=== PATIENT | female | born 1950 | race Caucasian/White ===

== ENCOUNTER 2016-10-04 07:58 | Day surgery (SDC) | payer MEDICARE, OTHER ==
[~2016-10-04 07:58] MED LIST: ACETAMINOPHEN 500 MG TABLET PO PRN; HYDROmorphone HCL 2 MG/ML VIAL IV PRN; MAG HYDROX/ALUMINUM HYD/SIMETH 30 ML UDC PO PRN; MAGNESIUM HYDROXIDE 30 ML UDC PO PRN; ONDANSETRON HCL/PF 2 MG/ML VIAL IV PRN; PROMETHAZINE HCL 25 MG in DEXTROSE 5 % IN WATER 50 ML IV PRN; RINGERS SOLUTION,LACTATED 1,000 ML IV PRN; ROPIVACAINE HCL/PF 40 MG in NORMAL SALINE 16 ML IJ PRN; ZOLPIDEM TARTRATE 5 MG TABLET PO PRN; ceFAZolin SODIUM 1 GM VIAL IV PRN; diphenhydrAMINE HCL 50 MG/ML VIAL IV PRN
[2016-10-04] MEDS ORDERED: RINGERS SOLUTION,LACTATED 1,000 ML IV ONE (08:40)
[2016-10-04] MEDS ORDERED: BUPIVACAINE HCL/EPINEPHRINE 50 ML VIAL IJ ONE ×2 (09:10)
--- NOTE | 2016-10-04 09:59 | OR ---
Operative Report - Dictated Report Narrative: Date: 10/04/2016 Physician: Anthony Celis M.D. Field Sales Executive: Gerber Bass PA-C Preoperative diagnosis: Left Knee medial meniscus tear, DJD Postoperative diagnosis: Left Knee medial meniscus tear, DJD Procedure: Left knee arthroscopy with partial medial meniscectomy, chondroplasty of the medial tibial plateau, patella and femoral trochlea Anesthesia: MAC Plus local Complications: None Estimated blood loss: Minimal Tourniquet time: None Specimens: None Retained implants: None Drains: None Indications: Lizett Is a 66 year-old female who has been followed in my clinic with complaints of knee pain consistent with suspected medial meniscal pathology. Physical exam and diagnostic imaging were consistent with these complaints and concern for medial meniscal pathology. Conservative measures have failed including, but not limited to, passage of time, activity modification, medications, and injections. The risks, benefits, and alternatives were discussed in clinic. The risks being , bleeding, infection, blood clots, nerve, tendon, ligament, blood vessel injury, persistent pain, arthrosis, need for additional procedures, and persistent symptoms. Consent was obtained in the clinic. Procedure: After marking the correct extremity in the preoperative holding area, a timeout was performed in the operating room. IV antibiotics consisting of 2 g of Ancef were administered prior to the procedure. A well-padded tourniquet was applied to the operative upper thigh. The leg was prepped and draped in a standard sterile fashion. 0.5% Marcaine with epinephrine was infused into the projected portal sites as well as the intra-articular space. A emanuel incision was made for inferior lateral portal. A blunt trocar and cannula was introduced into the knee. The suprapatellar pouch revealed no loose bodies. The medial patella facet showed grade 2 and grade 3 chondral changes distally. The lateral patella facet showed grade 3 and grade 4 chondral changes. The trochlea showed grade 2 chondral changes. The medial gutter revealed no loose bodies. The medial joint space was then entered utilizing a lateral post and valgus stress. A spinal needle was utilized for guidance into placement of an anterior medial portal. This was placed just superior to the medial meniscus ensuring that we could reach the posterior aspect of the medial joint space. A emanuel incision was made in the site, and the probe was introduced to the knee. The medial joint space was examined, and the medial femoral condyle showed mild grade 1 and a small area of grade 2 chondral change laterally on the weightbearing surface. The medial tibial plateau showed grade 2 and grade 3 chondral changes. The medial meniscus demonstrated a full-thickness radial tear just adjacent to the root with a horizontal cleavage component extending through the posterior horn. The notch was then examined, and the ACL was noted to be intact. The PCL was noted to be intact. The lateral joint space was then examined using a varus force in the figure 4 position. Lateral femoral condyle showed minimal degenerative changes. Lateral tibial plateau showed grade 2 chondral changes. The lateral meniscus showed mild degenerative fraying but no shayna tearing. The lateral gutter showed no loose bodies. Having identified the surgical pathology, a series of biters and shweta were utilized in order to debride the medial meniscus, medial tibial plateau, patella , and femoral trochlea. Once it was felt that we adequately addressed the pathology, the knee was thoroughly irrigated. The fluid was evacuated ensuring that we have removed all meniscal, chondral, and any other loose bodies. A final evaluation of the joint showed no additional pathology. The fluid was then evacuated of the knee, and the trocar and camera were removed from the joint. The wounds were closed with interrupted nylon after placing 20 mL of 0.2 % ropivacaine into the joint. Dressings consisting of Xeroform, 4 x 4, ABD, soft roll, and an Froy were applied. All sponge, needle, blade, and instrument counts were correct prior to closing the wounds. The patient was awoken and transferred to the post-anesthesia care unit in stable condition.
[2016-10-04] MEDS ORDERED: HYDROcodone/ACETAMINOPHEN 1 EACH TABLET PO ONE (10:45)
[2016-10-04 12:01] VITALS: BP 121/59
[2016-10-04] MEDS ORDERED: SENNOSIDES/DOCUSATE SODIUM 1 TAB TABLET PO SCH (21:00)
== END 2016-10-04 07:59 | disposition home or self-care (01) ==
LOC: AMB 07:58
PROVIDERS: ATTEND Orthopaedic Surgery
PROC: 0SBD4ZZ Excision of Left Knee Joint, Percutaneous Endoscopic Approach (ICD-10-PCS; principal; 2016-10-04 09:30)
DX: M23.222 Derangement of posterior horn of medial meniscus due to old tear or injury, left knee (principal); M17.12 Unilateral primary osteoarthritis, left knee; I10 Essential (primary) hypertension; E11.9 Type 2 diabetes mellitus without complications; J44.9 Chronic obstructive pulmonary disease, unspecified; E78.00 Pure hypercholesterolemia, unspecified; E55.9 Vitamin D deficiency, unspecified; Z87.891 Personal history of nicotine dependence; Z68.41 Body mass index [BMI] 40.0-44.9, adult

== ENCOUNTER 2017-08-25 10:44 | Emergency (ER) | payer MEDICARE, OTHER ==
[2017-08-25] MEDS ORDERED: ALBUTEROL SULFATE/IPRATROPIUM 3 ML NEBU IH ONE ×2 (11:34→11:38)
[2017-08-25 11:55] LABS: Hematocrit 42.5 % (37.0-47.0); Hemoglobin 13.7 gm/dL (12.5-16.0); Mean Cell Volume 91.4 fl (78-100); Mean Corpuscular Hemoglobin 29.5 pg (27-31); Mean Corpuscular Hgb Conc 32.2 g/dl (32-36); Mean Platelet Volume 10.3 fl (6.0-9.5); Neutrophil # 8.3 K/mm3 (1.3-6.0); Neutrophil % 76.7 % (42-75.0); Platelet Count 215 K/mm3 (150-450); Red Blood Count 4.65 M/mm3 (4.2-5.4); Red Cell Distribution Width 13.7 % (11.5-14.0); White Blood Count 10.8 K/mm3 (4.0-10.5)
[2017-08-25 12:12] LABS: Troponin I Less than 0.017 ng/ml (0.00-0.10)
[2017-08-25 12:13] LABS: ALT 39 U/L (19-67); AST 25 U/L (0-48); Albumin * 3.4 gm/dl (3.4-5.0); Alkaline Phosphatase * 89 U/L (50-170); Anion Gap 2.6 mmol/L (6.8-13.8); BUN/Creatinine Ratio 15.8 (9.0-21.6); Bilirubin, Total 0.4 mg/dL (0.0-1.1); Blood Urea Nitrogen 15 mg/dL (3-23); Ca. Corrected For Albumin 9.6 mg/dL (8.4-10.2); Calcium * 9.4 mg/dL (7.9-10.9); Chloride 98 mmol/L (97-106); Glucose * 266 mg/dL (70-110); Potassium 4.6 mmol/L (3.4-4.6); Sodium 133 mmol/L (132-142); Total Protein 7.4 gm/dL (6.2-8.2)
[2017-08-25 12:14] LABS: BNP * 325 pg/mL (5-325)
--- NOTE | 2017-08-25 12:21 | ERNOTE ---
Dyspnea - Date Date of Service: 08/25/17 - General Presenting Symptoms: shortness of breath Time Seen by Provider: 08/25/17 11:02 Source: patient Exam Limitations: no limitations - Immun/Allergies/Home Medications Immunizations: IMMUNIZATION HX Immunizations Up to Date Yes History of Influenza Vaccine Yes Hx Pneumococcal Vaccination Yes Allergies/Adverse Reactions: Allergies Penicillins Allergy (Mild, Verified 08/25/17 11:09) hives, rash TOLERATED ANCEF DURING LAST SURGERY adhesive tape Adverse Reaction (Mild, Verified 08/25/17 11:09) skin red Home Medications: HOME MEDICATIONS Albuterol Sulfate [Proair Hfa] 2 puff IH QID PRN 09/12/16 [Last Taken 10/04/16 06:15] Atenolol [Tenormin] 100 mg PO DAILY 09/12/16 [Last Taken 10/04/16 06:15] Cetirizine HCl [Zyrtec] 10 mg PO BID 09/12/16 [Last Taken Unknown] Cholecalciferol (Vitamin D3) [Vitamin D3] 5,000 unit PO DAILY 09/12/16 [Last Taken Unknown] Fluticasone/Salmeterol [Advair 250-50 Diskus] 2 puff IH BID 09/12/16 [Last Taken Unknown] Hydrochlorothiazide [Hydrodiuril] 25 mg PO DAILY 09/12/16 [Last Taken Unknown] Magnesium 250 mg PO DAILY 09/12/16 [Last Taken Unknown] Montelukast Sodium [Singulair] 10 mg PO HS 09/12/16 [Last Taken Unknown] Potassium Chloride [K-Dur] 40 meq PO BID 09/12/16 [Last Taken Unknown] Acetaminophen [Tylenol] 1,000 mg PO Q6H PRN 09/28/16 [Last Taken Unknown] Blood-Glucose Meter [Blood Glucose Monitoring] 1 each MC DAILY 09/28/16 [Last Taken Unknown] Ibuprofen [Motrin] 400 mg PO Q6H PRN 09/28/16 [Last Taken Unknown] Meloxicam [Mobic] 7.5 mg PO BID 09/28/16 [Last Taken Unknown] Multivitamins [Multivitamin Su] 1 cap PO DAILY 09/28/16 [Last Taken Unknown] metFORMIN HCL [Glucophage Xr] 1,000 mg PO BIDWM 09/28/16 [Last Taken Unknown] Azithromycin [Zithromax] 500 mg PO NOW #6 tab 08/25/17 [Last Taken Unknown] Gabapentin [Neurontin] 600 mg PO HS 08/25/17 [Last Taken Unknown] HYDROcodone/ACETAMINOPHEN [[place] 10-325 Tablet] 1 each PO HS 08/25/17 [Last Taken Unknown] Prednisone 50 mg PO DAILY 5 Days #5 tablet 08/25/17 [Last Taken Unknown] - History of Present Illness Narrative: Patient presents to the ED with increasing SOB since . Cough with this but no fever. She feels this is her COPD. She had been placed on a water pill by her primary doctor but has not been taking this regularly. No CP. SOB worse with exertion. No fever, no hemoptysis. Not positional. 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 Denies: fever/chills, lightheadedness Prior Treatment: Denies: currently on antibiotics Review of Systems - Review of Systems Constitutional: Absent: fever EYE: Present: no symptoms reported ENT: Absent: sore throat Respiratory: Present: See HPI Cardiology: Absent: chest pain Gastrointestinal/Abdominal: Absent: abdominal pain Skin: Absent: rash Neurological: Absent: weakness - Patient's Past Medical History Patient History - Medical: Chronic Pain, Diabetes Type 2, Osteoarthritis Patient History - Cardiac/Respiratory: COPD, Hypertension, Hyperlipidemia Patient History - Cancer: No Hx of Cancer Patient History - Surgical Procedures: Appendectomy, Hysterectomy Patient History - Other: None - Family History Father Family History - Medical: , No pertinent hx Family History - Cardiac/Respiratory: Hypertension Mother Family History - Medical: , No pertinent hx Family History - Cardiac/Respiratory: COPD, Hypertension Sister Family History - Medical: History Unknown Family History - Cardiac/Respiratory: Hypertension Grandmother-Paternal Family History - Medical: , History Unknown Family History - Cardiac/Respiratory: History Unknown Grandfather-Paternal Family History - Medical: , History Unknown Family History - Cardiac/Respiratory: History Unknown Grandfather-Maternal Family History - Medical: , History Unknown Family History - Cardiac/Respiratory: History Unknown Grandmother-Maternal Family History - Medical: , History Unknown Family History - Cardiac/Respiratory: History Unknown - Social History Living Situations: alone Abuse History: No History of abuse Psych History: No pertinent hx Smoking Status: Former smoker Have you smoked in the past 12 months: No Do you dip or chew tobacco: No Alcohol Use: none Drug Use: none - Immunizations Immunizations Up to Date: Yes Hx Pneumococcal Vaccination: Yes History of Influenza Vaccine: Yes Physical Exam - Physical Exam General Appearance: Present: alert, no apparent distress, other - no respiratory distress at rest Head Exam: Present: normal inspection, no evidence of injury Eye Exam: Normal inspection: bilateral, PERRL: bilateral Ears, Nose, Throat: Present: normal ENT inspection Neck: Present: normal inspection Respiratory: Present: no respiratory distress, no accessory muscle use, wheezing , other - scattered wheezes throughout Cardiovascular/Chest: Present: regular rate, rhythm, normal peripheral pulses Gastrointestinal/Abdominal: Present: normal bowel sounds, nontender, soft Back Exam: Present: normal range of motion Extremity Exam: Present: other - no calf tenderness or DVT findings Neurological Exam: Present: alert, no motor/sensory deficits Skin Exam: Present: normal color, warm/dry ED Progress - Results and Orders Patient's Lab Results:: I have reviewed the patient's lab results. - Vital Signs Patient's Vital Signs:: I have reviewed the patient's vital signs. Vital Signs: Vital Signs 08/25/17 08/25/17 08/25/17 10:54 11:07 11:21 Temperature 36.8 C Pulse Rate 77 64 71 Respiratory 18 17 24 H Rate Blood Pressure 154/58 146/68 146/68 O2 Sat by Pulse 90 94 98 Oximetry 08/25/17 08/25/17 08/25/17 11:36 11:42 11:50 Temperature Pulse Rate 81 81 74 Respiratory 23 H 16 15 Rate Blood Pressure 177/103 139/59 O2 Sat by Pulse 91 92 95 Oximetry 08/25/17 12:17 Temperature Pulse Rate 76 Respiratory 12 Rate Blood Pressure 135/45 O2 Sat by Pulse 92 Oximetry - EKG EKG: NSR EKG read: Interp. by wy EKG Comments: NSR rate 73. No evidence of acute infarct or ischemic pattern. - X-Ray X-Ray #1 X-Ray: chest Interpretation: Interp. by me X-ray Comments: I reviewed official radiology report - Progress/Reassessment Chief Complaint: Dyspnea Progress Note-Subjective: 08/25/17 12:38 I felt the patient should be admitted to the hospital but the patient was not agreeable to this. She understands risks and benefits but refuses admission. Given this I will sign her out AMA but still treat her maximally. She clearly understands risks and that she can return at anytime is she changes her mind about being in the hospital. I stressed to her that she needed to see her doctor tomorrow for a re-check. I discussed warning signs and reasons to return as well as the need for close follow-up. Departure Clinical Impression: COPD exacerbation - Departure Disposition: Against medical advice Condition: Undetermined Instructions: Chronic Obstructive Pulmonary Disease Exacerbation, [id number] Additional Instructions: Rest. Medications as directed with treatments every 4 hours. Return if you change your mind about being admitted to the hospital or if your condition worsens or changes in any way. Prescriptions: Azithromycin [Zithromax] 500 mg PO NOW #6 tab Prednisone 50 mg PO DAILY 5 Days #5 tablet
[2017-08-25] MEDS ORDERED: METHYLPREDNISOLONE SOD SUCC/PF 125 MG/2 ML VIAL IM ONE (12:30)
[2017-08-25] MEDS ORDERED: METHYLPREDNISOLONE SOD SUCC/PF 125 MG/2 ML VIAL ONE (12:36)
[2017-08-25 12:38] VITALS: BP 149/49
== END 2017-08-25 12:51 | disposition left against medical advice (07) ==
LOC: ER 10:44
DX: Z53.29 Procedure and treatment not carried out because of patient's decision for other reasons; J44.1 Chronic obstructive pulmonary disease with (acute) exacerbation; I10 Essential (primary) hypertension; E11.9 Type 2 diabetes mellitus without complications; E78.5 Hyperlipidemia, unspecified; Z87.891 Personal history of nicotine dependence